=== PATIENT | female | born 1995 | race Caucasian/White ===

== ENCOUNTER 2018-04-24 17:51 | Emergency (ER) | payer SELFPAY ==
[2018-04-24 18:44] VITALS: BP 128/76
--- NOTE | 2018-04-24 19:19 | UC ---
Ear Complaint HPI - HPI Summary HPI Summary: This is evelyn Quiroz documenting for attending Rasta Young MD. This patient is a 23 year old F presenting to [facility] with a chief complaint of loss of hearing in R ear that began 10 days ago. The patient rates the pain 0/ 10 in severity. Symptoms aggravated by nothing. Symptoms alleviated by nothing. Patient reports ringing in R ear. Patient denies fever. Pt denies recent trauma or recent swimming. Medications reviewed. Allergies reviewed. - History of Current Complaint Chief Complaint: UCEar Stated Complaint: EAR COMPLAINT Time Seen by Provider: 04/24/18 18:47 Hx Obtained From: Patient ?: No Onset/Duration: Sudden Onset, Lasting Weeks, Still Present Severity Initially: Mild Severity Currently: Mild Pain Intensity: 0 Pain Scale Used: 0-10 Numeric Aggravating Factors: Nothing Alleviating Factors: Nothing Associated Signs/Symptoms: Positive: Hearing Loss. Negative: Trauma to Ear - Allergies/Home Medications Allergies/Adverse Reactions: Allergies Allergy/AdvReac Type Severity Reaction Status Date / Time No Known Allergies Allergy Verified 04/24/18 18:45 Home Medications: Home Medications FLUoxetine CAP* [PROzac CAP*] 20 mg PO DAILY 04/24/18 [History Confirmed ] Ferrous Gluconate TAB* [Fergon TAB*] 325 mg PO DAILY 04/24/18 [History Confirmed 04/24/18] PMH/Surg Hx/FS Hx/Imm Hx Previously Healthy: No Endocrine History: Other Other Endocrine History: Negative diabetes Respiratory History: Asthma - Surgical History Surgical History: None - Family History Known Family History: Positive: Unknown - Social History Occupation: Student Lives: Dormitory/Roommates Alcohol Use: None Substance Use Type: None Smoking Status (MU): Never Smoked Tobacco Review of Systems Constitutional: Other - Negative fever ENT: Other - Positive hearing loss in R ear and ringing in R ear All Other Systems Reviewed And Are Negative: Yes Physical Exam - Summary Physical Exam Summary: General: well-appearing, no pain distress Skin: warm, color reflects adequate perfusion, dry Head: normal Eyes: EOMI, BLANCO ENT: R ear complete cerumen impaction. L side obstructed with cerumen. Neck: supple, nontender Respiratory: CTA, breath sounds present Cardiovascular: RRR Abdomen: soft, nontender Bowel: present Musculoskeletal: normal, strength/ROM intact Neurological: sensory/motor intact, A&O x3 Psychological: affect/mood appropriate Triage Information Reviewed: Yes Vital Signs: Initial Vital Signs Temp 98.6 F 04/24/18 18:38 Pulse 69 04/24/18 18:38 Resp 16 04/24/18 18:38 BP 128/76 04/24/18 18:38 Pulse Ox 100 04/24/18 18:38 Vital Signs Reviewed: Yes Re-Evaluation - Re-Evaluation First Eval Re-Evaluation Time: 19:15 Change: Improved Comment: TMs completely visible following irrigation. All wax is gone Ear Complaint Course/Dx - Course Course Of Treatment: EAR CANALS CLEAR AFTER IRRIGATION - Differential Dx/Diagnosis Provider Diagnoses: CERUMEN IMPACTION Discharge - Sign-Out/Discharge Documenting (check all that apply): Patient Departure - Discharge Plan Condition: Stable Disposition: HOME Patient Education Materials: Cerumen Impaction (ED) Referrals: [facility] [Outside] Additional Instructions: FOLLOW UP WITH YOUR DOCTOR IF NOT COMPLETELY IMPROVED. GET RECHECKED FOR ANY WORSENING OF YOUR CONDITION OR QUESTIONS OR CONCERNS. - Billing Disposition and Condition Condition: STABLE Disposition: Home
== END 2018-04-24 19:26 | disposition home or self-care (01) ==
LOC: UCEAST 17:51
DX: H61.23 Impacted cerumen, bilateral (principal)
CPT/HCPCS: 99203; G0463